=== PATIENT | female | born 1960 | race Caucasian/White ===

== ENCOUNTER 2017-01-11 07:40 | Inpatient (IN) | payer BC ==
[~2017-01-11] VITALS: Ht 177.8 cm; Wt 106.6 kg
--- NOTE | ~2017-01-11 | ST ---
[place], [place] EXERCISE STRESS TEST REPORT NAME: KIRILL BHATIA [facility] #: [id number] UNIT #: [id number] ROOM: 404 DOCTOR: SACHIN BLAND,GILDA BIRTHDATE: [birth year] DOS: 01/11/2017 EXERCISE NUCLEAR STRESS TEST REFERRING PHYSICIAN: Dr. Tai. REASON FOR TEST: Evaluation of chest pain. PHYSICAL EXAMINATION: NECK: Supple. LUNGS: Clear anteriorly. HEART: Regular rhythm. PROTOCOL: Chito protocol. Total stress time is 7 minutes. Maximum heart rate of 149, which is 89% of target heart rate. Peak blood pressure of 174/90, adequate response. Total mets 8.3 mets. Beverly treadmill score of +7. Symptoms: The patient had some resting chest pain, grade 1/10, and at the peak stress, pain was about grade 3/10, sharp pain, and pain was mostly resolved in the recovery phase; the patient did develop some shortness of breath during stress test, which was resolved acutely in the recovery phase. EKG: Resting EKG showed sinus rhythm. Stress EKG showed no ischemia, no arrhythmias. CONCLUSION: Clinically, the patient had mild chest pain and shortness of breath, mostly resolved in the recovery phase. POST-STRESS COMPLICATIONS: None. GILDA STEPHENSON MD CM:STRESS:EXERCISE STRESS TEST REPORT [id number] [id number] GILDA STEPHENSON MD
--- NOTE | ~2017-01-11 | CON ---
[place], [place] REPORT OF CONSULTATION NAME: KIRILL BHATIA UNIT #: [id number] ROOM: 404 DOCTOR: SACHIN BLAND,GILDA BIRTHDATE: [birth year] DOS: 01/11/2017 ADDENDUM CARDIOLOGY CONSULT REASON FOR CONSULTATION: Chest pain. REFERRING PHYSICIAN: Dr. Tai. This note is an addendum to the note dictated by Dr. Yessenia Andrew. I personally examined and assessed the patient today in the stress lab. Rhythm strips, labs and past medical history reviewed. Dr. Andrew's examination and assessment reflects my work. The patient was consulted for her intermittent chest pain. Her chest pains appeared to be atypical. Cardiac enzymes unremarkable. EKG unremarkable. She was scheduled for a stress test. PHYSICAL EXAMINATION: Focused cardiac exam showed, NECK: Supple. No distended neck veins. LUNGS: Clear to auscultation. HEART: Regular rhythm, no significant murmurs. EXTREMITIES: Showed no edema. IMPRESSION: 1. Chest pain, atypical, myocardial infarction ruled out. 2. History of asthma 3. Non-morbid obesity. RECOMMENDATIONS: Exercise nuclear stress test today due to evaluation of her chest pains. Further recommendations based on her symptoms and her stress test. This note is an addendum to the note dictated by Dr. Yessenia Andrew. GILDA STEPHENSON MD CM:CONSTR:REPORT OF CONSULTATION 1332 01/12/17 0629 interface
[~2017-01-11 07:40] MED LIST: AMBIEN5 MG PO; BUPROPION HCL150 M3 PO; CITALOPRAM20 MG/10 M PO; CLARITIN10 MG PO; DETROL LA4 MG PO; ESOMEPRAZOLE MA20 MG PO; FLEXERIL10 MG PO; FLOMAX0.4 MG PO; MEDROL DOSEPAK4 MG PO; MOTRIN600 MG PO; NEXIUM20 MG PO; PREMARIN V0.625 MG/G V; VICO75300 PO; WELLBUTRIN SR150 MG PO; Zofran4 MG PO; [UNRECOGNIZED DRUG - OTHER]; [UNRECOGNIZED DRUG - REMARK]
[2017-01-11 07:46] VITALS: BP 170/101
[2017-01-11] MEDS ORDERED: SINGULAIR10 M1 PO (07:56)
[2017-01-11] MEDS ORDERED: PROZAC20 MG PO (07:57)
[2017-01-11 08:09] LABS: BASO % 0.7 % (0.0-1.0); EOS # 0.1 10*3/uL (0.0-0.4); EOS % 1.8 % (1.0-4.0); HEMATOCRIT 40.4 % (37.0-47.0); HEMOGLOBIN 13.1 g/dl (12.0-16.0); LYMPH # 1.8 10*3/uL (1.3-4.4); LYMPH % 29.8 % (27.0-41.0); MEAN CORPUSCULAR HGB 28.5 pg (27.0-31.0); MEAN CORPUSCULAR HGB CONC 32.4 g/dl (33.0-37.0); MEAN PLATELET VOLUME 8.9 fl (9.6-12.3); MONO # 0.4 10*3/uL (0.1-1.0); MONO % 7.4 % (3.0-9.0); NEUT # 3.6 10*3/uL (2.3-7.9); NEUT % 60.1 % (47.0-73.0); PLATELET COUNT AUTOMATED 219 10*3/uL (130-400); RED BLOOD COUNT 4.59 10*6/uL (4.10-5.10); RED CELL DISTRI WIDTH 12.8 % (0-14.5)
[2017-01-11 08:18] LABS: INTERNATIONAL NORM RATIO 0.9 (2.0-3.5); PROTHROMBIN TIME 9.9 SECONDS (9.0-12.4)
[2017-01-11 08:26] LABS: ALBUMIN 4.1 gm/dl (3.1-4.5); ALKALINE PHOSPHATASE 76 U/L (45-117); BUN 19 mg/dl (7-24); CARBON DIOXIDE 28 mmol/L (21-32); CHLORIDE 104 mmol/L (98-107); CKMB 2.7 ng/ml (0.5-3.6); CPK 168 U/L (26-192); EST GLOM FILT AFRICAN AMERICAN > 60 ml/min; GLUCOSE 108 mg/dL (65-99); MAGNESIUM 2.2 mg/dL (1.5-2.1); POTASSIUM 3.7 mmol/L (3.5-5.1); SGOT/AST 21 IU/L (3-35); SGPT/ALT 28 U/L (12-78); SODIUM 142 mmol/L (136-145); TOTAL PROTEIN 7.7 gm/dL (6.4-8.2)
[2017-01-11 08:27] LABS: C-REACTIVE PROTEIN < 0.29 MG/DL (0-0.3); TROPONIN I < 0.015 ng/ml (<0.045)
[2017-01-11 08:50] VITALS: BP 142/97
[2017-01-11 09:19] VITALS: BP 163/100
[2017-01-11 10:00] VITALS: BP 150/81
[2017-01-11] MEDS ORDERED: AMBIEN10 M1 PO (10:05)
[2017-01-11 11:15] LABS: CKMB 2.3 ng/ml (0.5-3.6); CPK 156 U/L (26-192)
[2017-01-11 11:17] LABS: TROPONIN I < 0.015 ng/ml (<0.045)
[2017-01-11 16:00] VITALS: BP 143/71
[2017-01-11] MEDS ORDERED: LISINOPRIL5 MG PO (16:38)
== END 2017-01-11 16:56 | disposition home or self-care (01) | DRG 313 ==
LOC: ED 07:40 → 4E 09:07 → EDHOLD 09:07 → 4E 09:31
PROVIDERS: Emergency Medicine; Internal Medicine Hospice and Palliative Medicine
DX: R07.89 Other chest pain (principal); F33.9 Major depressive disorder, recurrent, unspecified; I16.1 Hypertensive emergency; K21.9 Gastro-esophageal reflux disease without esophagitis; J45.909 Unspecified asthma, uncomplicated; K58.9 Irritable bowel syndrome, unspecified; J30.2 Other seasonal allergic rhinitis; N32.81 Overactive bladder; R73.9 Hyperglycemia, unspecified; E83.41 Hypermagnesemia; E66.09 Other obesity due to excess calories; Z68.33 Body mass index [BMI] 33.0-33.9, adult; Z87.891 Personal history of nicotine dependence; Z90.710 Acquired absence of both cervix and uterus; Z88.0 Allergy status to penicillin

== ENCOUNTER → 2017-04-21 | Outpatient (CLI) | payer OTHER ==
[~2017-04-21] MED LIST changes: +AMBIEN10 M1 PO; +LISINOPRIL5 MG PO; +PROZAC20 MG PO; +SINGULAIR10 M1 PO
== END | disposition home or self-care (01) ==
LOC: CP 08:32
DX: J45.40 Moderate persistent asthma, uncomplicated (principal)

== ENCOUNTER 2017-09-26 07:28 | Emergency (ER) | payer OTHER ==
[~2017-09-26] VITALS: Ht 175.2 cm; Wt 108.9 kg
[2017-09-26 07:38] VITALS: BP 153/90
[2017-09-26] MEDS ORDERED: TAMIFLU 75MG CA75 MG PO ×2 (07:47→08:46)
[2017-09-26] MEDS ORDERED: PREDNISONE50 MG PO (08:45)
== END 2017-09-26 08:41 | disposition home or self-care (01) ==
LOC: ED 07:28
DX: J11.1 Influenza due to unidentified influenza virus with other respiratory manifestations (principal); J45.901 Unspecified asthma with (acute) exacerbation; K21.9 Gastro-esophageal reflux disease without esophagitis; I16.1 Hypertensive emergency; Z87.891 Personal history of nicotine dependence; Z88.0 Allergy status to penicillin; Z79.899 Other long term (current) drug therapy

== ENCOUNTER 2017-10-05 11:53 | Inpatient (IN) | payer OTHER ==
[~2017-10-05] VITALS: Ht 175.2 cm; Wt 107.7 kg
--- NOTE | ~2017-10-05 | PR ---
[place], [place] PROGRESS NOTE NAME: KIRILL BHATIA [facility] #: [id number] UNIT #: [id number] ROOM: 531 DOCTOR: STEPHANIE GOLDBERG MD,MOOSE BIRTHDATE: [birth year] DOS: 10/08/2017 SUBJECTIVE: She has been ambulatory. The patient reduction in symptoms of cough and shortness breath and the wheezing was continued. Denies symptoms of chest pain and abdominal pain, feeling better today. OBJECTIVE: VITAL SIGNS: Normal temperature, respiratory rate 20, heart rate 77, blood pressure 122/76, pulse ox and saturation on room air 95% saturation. HEENT: No acute change. NECK: Supple. CARDIOVASCULAR: S1, S2 audible. LUNGS: Noted without any wheezing or crackles today. ABDOMEN: Soft, nontender. EXTREMITIES: Without any acute edema. IMPRESSION: Progressive resolution of acute exacerbation of bronchial asthma and acute bronchitis. PLAN OF MANAGEMENT: The patient will be continued on current plan of therapy as previously. Usual care. All other supportive plan of management and care. Usual medical management, other therapies. MOOSE BROWN MD CM:PNTRANS 1510 17 MOOSE GOLDBERG MD 10/08/172016 interface
--- NOTE | ~2017-10-05 | EKG ---
[place], [place] ELECTROCARDIOGRAM REPORT NAME: KIRILL BHATIA UNIT #: [id number] ROOM: 531 DOCTOR: STEPHANIE GOLDBERG MD,MOOSE BIRTHDATE: [birth year] DOS: 10/05/2017 Electrocardiogram done at 12:46 p.m. Normal sinus rhythm noted with heart rate of 82 beats per minute. Poor R-wave progression of the patient noted. Possibility of old inferior myocardial infarction cannot be excluded. MOOSE BROWN MD CM:EKGRPT:ELECTROCARDIOGRAM REPORT 1227 1236 MOOSE GOLDBERG MD
--- NOTE | ~2017-10-05 | PR ---
[place], [place] PROGRESS NOTE NAME: KIRILL BHATIA [facility] #: [id number] UNIT #: [id number] ROOM: 531 DOCTOR: STEPHANIE GOLDBERG MD,MOOSE BIRTHDATE: [birth year] DOS: 10/07/2017 SUBJECTIVE: She has been showing reduction of the respiratory complaints at this time. Shortness of breath, cough have been resolving. There were no symptoms of chest pain. The cough has been subsiding. Shortness of breath and wheezing have also gradually decreased and the cough remains nonproductive. OBJECTIVE: VITAL SIGNS: Normal temperature, respiratory rate 19, heart rate 71, blood pressure 147/91-110/53. Pulse oxygen saturation on room air was 95% saturation. HEENT: Shows no acute change. NECK: Supple. CARDIOVASCULAR: S1, S2 audible. LUNGS: Noted with mild expiratory wheezing bilaterally. ABDOMEN: Soft, nontender. EXTREMITIES: Without any acute edema. LABORATORY DATA: CBC that was done today was noted as normal. The BMP this morning - glucose 121, BUN normal, creatinine was normal. Remaining electrolytes were normal. IMPRESSION: 1. Gradual resolution of acute tracheobronchitis. 2. Exacerbation of bronchial asthma was continued. 3. History of obesity and allergic rhinitis. PLAN OF MANAGEMENT: Gradual reduction of the steroids. The patient will be started from today to 60 mg b.i.d. dose decreased from 60 mg q.8 hours. Continue bronchodilators, oxygen supplementation, antibiotics, and mucolytics. Expected possible home discharge tomorrow morning depends on further improvement in the respiratory status. MOOSE BROWN MD CM:PNTRANS 1234 [id number] MOOSE GOLDBERG MD 10/07/17 2343 interface
--- NOTE | ~2017-10-05 | CON ---
[place], [place] REPORT OF CONSULTATION NAME: KIRILL BHATIA [facility] #: [id number] UNIT #: [id number] ROOM: 531 DOCTOR: MOOSE JUAREZ MD BIRTHDATE: [birth year] DOS: 10/06/2017 REQUESTED BY: Hospitalist service. REASON FOR CONSULTATION: Assessment of the current nonresolving respiratory symptom with acute exacerbation of bronchial asthma and severe cough. HISTORY OF PRESENT ILLNESS: This is a 57-year-old white female, who has been known from the past as the patient has been treated in the office for the medical management of chronic allergic rhinitis as well as an uncomplicated moderate persistent bronchial asthma. She came into my office yesterday for assessment of current symptom. The patient's symptoms started about a week or so ago. She started with having progressive chest congestion without any sputum expectoration and also developed severe shortness of breath and excessive severe cough. The patient with audible wheezing. She has taken [id number] medication and the medications continued to fail to respond to the treatment. After assessment of the patient in the office, she was noted acutely ill and sent to the hospital for further medical management and assessment. She has been currently admitted to the hospital. She has been started on intravenous steroids, bronchodilators, antibiotics and reported partial reduction of respiratory symptom, coughing frequency and intensity has been decreased. Cough was noted mostly nonproductive. Denies any symptoms of acute chest pain. Denies symptoms of hemoptysis or chest trauma. REVIEW OF SYSTEMS: CONSTITUTIONAL: The patient does complain of fatigue and tiredness with low grade fever. EYES: Denies burning, discharge or redness. EARS, NOSE, THROAT SYMPTOMS: Denies sore throat, hoarseness, otalgia, postnasal drainage or epistaxis. CARDIOVASCULAR: Denies angina pain, edema or pain in the lower extremities. GASTROINTESTINAL: No dysphagia, nausea, vomiting, diarrhea, abdominal pain, hematemesis, melena, hematochezia, abnormal weight loss. GENITOURINARY: No dysuria, suprapubic pain, hematuria. MUSCULOSKELETAL: No joint pain, redness, or tenderness reported. CENTRAL NERVOUS SYSTEM: No dizziness, headache, diplopia, syncopal episodes. The remaining systems were reviewed. They were noted all negative. PAST MEDICAL HISTORY: 1. History of uncomplicated moderate persistent bronchial asthma. 2. Moderate obesity with BMI 35. 3. History of allergic rhinitis. 4. Generalized anxiety disorder and depression. PAST SURGICAL HISTORY: Noted cervical laminectomy. SOCIAL HISTORY: The patient is , has 2 children, lives at home. She has been noted tobacco use from age of [age] years old, half a pack of cigarettes per day until 2005. [place], [place] REPORT OF CONSULTATION NAME: KIRILL BHATIA UNIT #: [id number] ROOM: 531 DOCTOR: MOOSE JUAREZ MD BIRTHDATE: [birth year] FAMILY HISTORY: Father is 77 years old without any known medical illness. Mother is 74 years old with history of congestive heart failure and stroke. CURRENT MEDICATIONS: Administered for this patient during this hospitalization were noted as use of Tessalon Perles, ibuprofen, loratadine, Prozac, Lovenox for DVT prophylaxis, oral Protonix, Singulair 10 mg, Wellbutrin-SR, Solu-Medrol 60 mg every 8 hours, DuoNeb q.6h., IV Levaquin, DuoNeb q.4h., and other p.r.n. medication for management of acute symptoms. ALLERGIES: NOTED ALLERGY TO PENICILLINS. PHYSICAL EXAMINATION: GENERAL: This is a 57-year-old white female, currently noted awake and alert, noted to be somewhat better, looking less ill for the patient today, awake, alert, oriented. Height of 5 feet 9 inches, weight of 237 pounds, BMI 35. VITAL SIGNS: Normal temperature, respiratory rate 16-20, heart rate 85, 108 on admission, blood pressure 122/64-137/79. The pulse oxygen saturation on room air 94% saturation. HEENT: Moderate obesity. Head was atraumatic. Eyes: No icterus. NECK: Supple. CARDIOVASCULAR: S1, S2 audible. LUNGS: The patient with moderate decreased breath sounds in the lungs were noted with expiratory wheezing, no crackles. ABDOMEN: Moderate obesity. Bowel sounds present without any tenderness. CENTRAL NERVOUS SYSTEM: Noted as cranial nerves 2-12 intact. No focal deficits. SKIN: No lesions or rashes. MUSCULOSKELETAL SYMPTOMS: Without any acute deformities. LABORATORY DATA: Chest x-ray of the patient two-view, which was done was noted essentially no acute abnormalities. CMP on 10/05/2017 on admission, normal BUN and creatinine and other electrolytes. CBC on 10/05/2017 noted completely normal. Influenza A and B, nasal washing antigens were negative. Lactic acid 2.6 later on 2.9. CMP of the patient this morning, glucose 124, normal BUN and creatinine. CBC today was essentially remains normal. IMPRESSION: 1. The patient has been currently admitted to the hospital, noted progressive acute respiratory symptoms with failed outpatient treatment, noted with acute exacerbation of bronchial asthma and acute bronchitis, possibility of bacterial, viral has been considered. Currently, the patient will be treated for bacterial etiology. 2. The patient with history of allergic rhinitis. 3. Anxiety and depression. 4. Chronic moderate obesity. PLAN OF TREATMENT: Continue current dose of Solu-Medrol, bronchodilators every 4 hours and antibiotics. Sputum for Gram stain and culture, the patient is able to expectorate sputum. Respiratory viral panel for the patient will be ordered [place], [place] REPORT OF CONSULTATION NAME: KIRILL BHATIA UNIT #: [id number] ROOM: 531 DOCTOR: MOOSE JUAREZ MD BIRTHDATE: [birth year] as well. Absent tobacco use as previously. All other supportive plan of therapy and care plan. Additional treatment changes will be recommended based on the progression of the illness. Once the patient's respiratory symptoms start resolving, the dose of Solu-Medrol will be decreased hopefully starting tomorrow. Other therapy, plan of management and care plan. Usual care. MOOSE BROWN MD CM:CONSTR:REPORT OF CONSULTATION 1327 10/06/17 1950 interface
[~2017-10-05 11:53] MED LIST changes: +PREDNISONE50 MG PO; +TAMIFLU 75MG CA75 MG PO
[2017-10-05 12:11] VITALS: BP 146/90
[2017-10-05 12:47] LABS: BASO % 0.4 % (0.0-1.0); EOS # 0.1 10*3/uL (0.0-0.4); EOS % 0.6 % (1.0-4.0); HEMATOCRIT 43.3 % (37.0-47.0); HEMOGLOBIN 14.1 g/dl (12.0-16.0); LYMPH # 1.4 10*3/uL (1.3-4.4); LYMPH % 17.3 % (27.0-41.0); MEAN CELL VOLUME 85.4 fl (81.0-99.0); MEAN CORPUSCULAR HGB 27.8 pg (27.0-31.0); MEAN CORPUSCULAR HGB CONC 32.6 g/dl (33.0-37.0); MEAN PLATELET VOLUME 8.8 fl (9.6-12.3); MONO # 0.4 10*3/uL (0.1-1.0); MONO % 4.7 % (3.0-9.0); NEUT # 6.2 10*3/uL (2.3-7.9); NEUT % 76.5 % (47.0-73.0); PLATELET COUNT AUTOMATED 278 10*3/uL (130-400); RED BLOOD COUNT 5.07 10*6/uL (4.10-5.10); RED CELL DISTRI WIDTH 13.4 % (0-14.5); WHITE BLOOD COUNT 8.1 10*3/uL (4.8-10.8)
[2017-10-05 12:52] LABS: BILIRUBIN NEGATIVE (NEGATIVE); BLOOD NEGATIVE (NEGATIVE); CLARITY CLEAR (CLEAR); COLOR YELLOW (YELLOW); GLUCOSE NEGATIVE (NEGATIVE); KETONE NEGATIVE (NEGATIVE); LEUKO ESTERASE NEGATIVE (NEGATIVE); NITRITE NEGATIVE (NEGATIVE); PH 6.5 (5.0-9.0); SPECIFIC GRAVITY <= 1.005 (1.005-1.030); UROBILINOGEN 0.2 E.U./dl (0.2-1.0)
[2017-10-05 13:06] LABS: ALBUMIN 3.9 gm/dl (3.1-4.5); ALKALINE PHOSPHATASE 71 U/L (45-117); BUN 17 mg/dl (7-24); CHLORIDE 104 mmol/L (98-107); CREATININE 0.98 mg/dL (0.55-1.02); POTASSIUM 3.8 mmol/L (3.5-5.1); SGOT/AST 18 IU/L (3-35); SGPT/ALT 31 U/L (12-78); SODIUM 140 mmol/L (136-145); TOTAL PROTEIN 7.6 gm/dL (6.4-8.2)
[2017-10-05 13:09] LABS: TROPONIN I < 0.015 ng/ml (<0.045)
[2017-10-05 13:10] LABS: BACTERIA TRACE; WBC 0-2 wbc/hpf (0-5)
[2017-10-05] MEDS ORDERED: PROZAC10 MG PO (15:17)
[2017-10-05 15:23] VITALS: BP 139/83
[2017-10-05 16:00] VITALS: BP 139/83
[2017-10-05] MEDS ORDERED: QVAR8.7 G1 INH (16:55)
[2017-10-05] MEDS ORDERED: IBU800 MG PO (16:56)
[2017-10-05] MEDS ORDERED: STOOL SOFTENER1 EAC3 PO (16:56)
[2017-10-05 20:03] VITALS: BP 134/80
[2017-10-06] VITALS: BP 137/79
[2017-10-06 06:49] LABS: HEMATOCRIT 38.6 % (37.0-47.0); HEMOGLOBIN 12.3 g/dl (12.0-16.0); LYMPH # 1.1 10*3/uL (1.3-4.4); LYMPH % 12.4 % (27.0-41.0); MEAN CELL VOLUME 87.1 fl (81.0-99.0); MEAN CORPUSCULAR HGB 27.8 pg (27.0-31.0); MEAN CORPUSCULAR HGB CONC 31.9 g/dl (33.0-37.0); MEAN PLATELET VOLUME 9.1 fl (9.6-12.3); MONO # 0.3 10*3/uL (0.1-1.0); MONO % 3.8 % (3.0-9.0); NEUT # 7.2 10*3/uL (2.3-7.9); NEUT % 83.1 % (47.0-73.0); PLATELET COUNT AUTOMATED 262 10*3/uL (130-400); RED BLOOD COUNT 4.43 10*6/uL (4.10-5.10); RED CELL DISTRI WIDTH 13.4 % (0-14.5); WHITE BLOOD COUNT 8.7 10*3/uL (4.8-10.8)
[2017-10-06 07:19] LABS: ALBUMIN 3.6 gm/dl (3.1-4.5); BUN 18 mg/dl (7-24); CHLORIDE 106 mmol/L (98-107); CHOLESTEROL 202 mg/dL (<200); CREATININE 0.94 mg/dL (0.55-1.02); HDL CHOLESTEROL 80 mg/dl (40-60); LDL CHOLESTEROL 108 mg/dL (9-159); PHOSPHOROUS 3.2 mg/dL (2.5-4.9); SGOT/AST 15 IU/L (3-35); SGPT/ALT 27 U/L (12-78); SODIUM 142 mmol/L (136-145); TOTAL PROTEIN 6.9 gm/dL (6.4-8.2); TRIGLYCERIDES 69 mg/dl (<150); VLDL CHOLESTEROL 14 mg/dL (6-40)
[2017-10-06 07:25] LABS: ALKALINE PHOSPHATASE 60 U/L (45-117); FREE T4 1.12 ng/dl (0.76-1.46)
[2017-10-06 07:52] LABS: VITAMIN D, 25-HYDROXY 39.9 ng/mL (30-100)
[2017-10-06 08:00] VITALS: BP 138/74
[2017-10-06 12:00] VITALS: BP 122/64
[2017-10-06 16:00] VITALS: BP 145/85
[2017-10-06 20:00] VITALS: BP 149/79
[2017-10-07] VITALS: BP 110/53
[2017-10-07 06:33] LABS: BASO % 0.1 % (0.0-1.0); EOS % 0.1 % (1.0-4.0); HEMATOCRIT 39.9 % (37.0-47.0); HEMOGLOBIN 12.8 g/dl (12.0-16.0); LYMPH # 1.2 10*3/uL (1.3-4.4); LYMPH % 12.6 % (27.0-41.0); MEAN CELL VOLUME 88.5 fl (81.0-99.0); MEAN CORPUSCULAR HGB 28.4 pg (27.0-31.0); MEAN CORPUSCULAR HGB CONC 32.1 g/dl (33.0-37.0); MEAN PLATELET VOLUME 9.1 fl (9.6-12.3); MONO # 0.4 10*3/uL (0.1-1.0); MONO % 4.7 % (3.0-9.0); NEUT # 7.5 10*3/uL (2.3-7.9); NEUT % 81.7 % (47.0-73.0); PLATELET COUNT AUTOMATED 259 10*3/uL (130-400); RED BLOOD COUNT 4.51 10*6/uL (4.10-5.10); RED CELL DISTRI WIDTH 13.7 % (0-14.5); WHITE BLOOD COUNT 9.2 10*3/uL (4.8-10.8)
[2017-10-07 06:45] LABS: BUN 18 mg/dl (7-24); CHLORIDE 105 mmol/L (98-107); CREATININE 0.89 mg/dL (0.55-1.02); POTASSIUM 4.2 mmol/L (3.5-5.1); SODIUM 140 mmol/L (136-145)
[2017-10-07 08:00] VITALS: BP 147/91
[2017-10-07 12:00] VITALS: BP 127/72
[2017-10-07 16:00] VITALS: BP 115/59
[2017-10-07 20:00] VITALS: BP 132/78
[2017-10-08] VITALS: BP 124/74
[2017-10-08 08:00] VITALS: BP 141/79
[2017-10-08 12:00] VITALS: BP 122/76
[2017-10-08] MEDS ORDERED: PREDNISONE10 MG PO (13:31)
[2017-10-08] MEDS ORDERED: LEVAQUIN500 M2 PO (13:31)
== END 2017-10-08 14:56 | disposition home or self-care (01) | DRG 202 ==
LOC: ED 11:53 → 5E 14:34 → EDHOLD 14:34 → 5E 15:06
PROVIDERS: Internal Medicine; Physician Assistant; Registered Nurse
DX: J45.51 Severe persistent asthma with (acute) exacerbation (principal); E87.2 Acidosis; F32.9 Major depressive disorder, single episode, unspecified; K21.9 Gastro-esophageal reflux disease without esophagitis; F41.9 Anxiety disorder, unspecified; I10 Essential (primary) hypertension; N32.81 Overactive bladder; E66.8 Other obesity; J20.9 Acute bronchitis, unspecified; G47.00 Insomnia, unspecified; R00.0 Tachycardia, unspecified; R73.9 Hyperglycemia, unspecified; R73.03 Prediabetes; Z88.0 Allergy status to penicillin; Z82.0 Family history of epilepsy and other diseases of the nervous system; Z87.891 Personal history of nicotine dependence; Z82.49 Family history of ischemic heart disease and other diseases of the circulatory system; Z90.710 Acquired absence of both cervix and uterus; Z68.35 Body mass index [BMI] 35.0-35.9, adult

== ENCOUNTER 2018-01-28 15:04 | Emergency (ER) | payer OTHER ==
[~2018-01-28] VITALS: Wt 95.3 kg
[~2018-01-28 15:04] MED LIST changes: +IBU800 MG PO; +LEVAQUIN500 M2 PO; +PREDNISONE10 MG PO; +PROZAC10 MG PO; +QVAR8.7 G1 INH; +STOOL SOFTENER1 EAC3 PO
[2018-01-28 15:09] VITALS: BP 144/84
[2018-01-28] MEDS ORDERED: NORCO 5-325 TA1 EACH PO (16:22)
== END 2018-01-28 17:24 | disposition home or self-care (01) ==
LOC: ED 15:04
DX: S83.91XA Sprain of unspecified site of right knee, initial encounter (principal); Z90.710 Acquired absence of both cervix and uterus; W01.0XXA Fall on same level from slipping, tripping and stumbling without subsequent striking against object, initial encounter; Y93.89 Activity, other specified; Y92.89 Other specified places as the place of occurrence of the external cause; Y99.8 Other external cause status

== ENCOUNTER → 2018-02-06 | Outpatient (CLI) | payer OTHER ==
[~2018-02-06] MED LIST changes: +NORCO 5-325 TA1 EACH PO
== END | disposition home or self-care (01) ==
LOC: MRI 07:55
DX: M25.561 Pain in right knee (principal)

== ENCOUNTER → 2018-04-27 | Outpatient (CLI) | payer OTHER ==
[~2018-04-27] MED LIST changes: +NEXIUM20 M1 PO; +QVAR REDIHALE10.6 G1 INH
== END | disposition home or self-care (01) ==
LOC: MAMMO 07:40
DX: Z12.31 Encounter for screening mammogram for malignant neoplasm of breast (principal)

== ENCOUNTER → 2018-07-17 | Outpatient (CLI) | payer OTHER | END | disposition home or self-care (01) | LOC: ORTHO 00:59 | DX: M25.551 Pain in right hip (principal); W19.XXXA Unspecified fall, initial encounter ==

== ENCOUNTER 2018-07-25 09:56 | Emergency (ER) | payer OTHER ==
[~2018-07-25] VITALS: Ht 7315 cm; Wt 2.5 kg
--- NOTE | ~2018-07-25 | EKG ---
[place], [place] ELECTROCARDIOGRAM REPORT NAME: KIRILL BHATIA UNIT #: [id number] ROOM: DOCTOR: AUDREY DRAFT REPORT BIRTHDATE: [birth year] [facility] Test Date: 2018-07-25 Test Time: 10:53:32 Pat Name: KIRILL BHATIA Department: Room: Gender: F [employer] Dressmaker: BENTLEY : 1960 Requested By: PERRY DAWSON Order Number: [id number] [place] MD: Emily Orr MD Measurements Intervals [place] Rate: 72 P: 70 MN: 167 QRS: -32 QRSD: 93 T: 61 QT: 411 QTc: 450 Interpretive Statements Sinus rhythm Left axis deviation Low voltage, precordial leads Consider anterior infarct No previous ECG available for comparison Electronically Signed On 07-26-2018 8:48:08 PST by Emily Orr MD CM:EKGRPT:ELECTROCARDIOGRAM REPORT 1053 0848 PERRY TORO DRAFT REPORT PERRY DAWSON DO
[~2018-07-25 09:56] MED LIST changes: -NEXIUM20 M1 PO; -QVAR REDIHALE10.6 G1 INH
[2018-07-25 10:00] VITALS: BP 160/87
[2018-07-25] MEDS ORDERED: QVAR REDIHALE10.6 G1 INH (10:20)
[2018-07-25] MEDS ORDERED: WELLBUTRIN SR150 MG PO (10:20)
[2018-07-25] MEDS ORDERED: PROZAC10 MG PO (10:20)
[2018-07-25] MEDS ORDERED: NEXIUM20 M1 PO (10:21)
== END 2018-07-25 15:05 | disposition home or self-care (01) ==
LOC: ED 09:56
DX: R07.9 Chest pain, unspecified (principal); M25.512 Pain in left shoulder; J45.909 Unspecified asthma, uncomplicated; K21.9 Gastro-esophageal reflux disease without esophagitis; I10 Essential (primary) hypertension; Z88.0 Allergy status to penicillin; Z79.1 Long term (current) use of non-steroidal anti-inflammatories (NSAID); Z79.899 Other long term (current) drug therapy; Z87.442 Personal history of urinary calculi; Z90.710 Acquired absence of both cervix and uterus

== ENCOUNTER → 2018-08-02 | Outpatient (CLI) | payer OTHER ==
[~2018-08-02] MED LIST changes: +NEXIUM20 M1 PO; +QVAR REDIHALE10.6 G1 INH
== END | disposition home or self-care (01) ==
LOC: MRI 08:35
DX: M17.11 Unilateral primary osteoarthritis, right knee (principal); D16.21 Benign neoplasm of long bones of right lower limb

== ENCOUNTER → 2019-04-05 | Outpatient (CLI) | payer OTHER ==
--- NOTE | ~2019-04-05 | PF ---
[place], [place] PULMONARY FUNCTION TEST NAME: KIRILL BHATIA [facility] #: [id number] UNIT #: [id number] ROOM: DOCTOR: STEPHANIE GOLDBERG MD,MOOSE BIRTHDATE: [birth year] DOS: 04/05/2019 ORDERED: From my office. HISTORY: A 58-year-old female, height of 69 inches, weight of 235 pounds, BMI 34.7 with a diagnosis of bronchial asthma. The patient was noted tobacco use in the past as one-third of pack of cigarettes per day for 10 years. Tobacco cessation reported 28 years ago. SPIROMETRY: FVC recorded at 3.72 liters, 96% predicted value, FEV1 2.85 liters, 93% predicted value. Ratio of FEV1/FVC 76%. Post-bronchodilator, no improvement noted of any clinical significance. Flow volume was suggestive of mild obstructive airway pattern. LUNG VOLUME: Thoracic gas volume recorded 87%, residual volume 101%, total lung capacity 102%. The patient's lung diffusion recorded 95%. The patient's airway resistance and passive conductance noted normal partial improvement post-bronchodilator test. FINAL IMPRESSION: Current test for the patient was noted with mild obstructive lung disease. MOOSE BROWN MD CM:PFREPORT:PULMONARY FUNCTION TEST 1016 1925 MOOSE GOLDBERG MD
== END | disposition home or self-care (01) ==
LOC: CP 08:30
DX: J45.40 Moderate persistent asthma, uncomplicated (principal); Z72.0 Tobacco use

== ENCOUNTER → 2019-04-30 | Outpatient (CLI) | payer OTHER ==
[2019-04-30 19:36] LABS: BASO % 0.7 % (0.0-1.0); EOS # 0.1 10*3/uL (0.0-0.4); EOS % 2.4 % (1.0-4.0); HEMATOCRIT 42.4 % (37.0-47.0); HEMOGLOBIN 13.4 g/dl (12.0-16.0); LYMPH # 1.4 10*3/uL (1.3-4.4); LYMPH % 25.6 % (27.0-41.0); MEAN CORPUSCULAR HGB 28.8 pg (27.0-31.0); MEAN CORPUSCULAR HGB CONC 31.6 g/dl (33.0-37.0); MEAN PLATELET VOLUME 8.7 fl (9.6-12.3); MONO # 0.3 10*3/uL (0.1-1.0); NEUT # 3.6 10*3/uL (2.3-7.9); NEUT % 65.1 % (47.0-73.0); PLATELET COUNT AUTOMATED 254 10*3/uL (130-400); RED BLOOD COUNT 4.66 10*6/uL (4.10-5.10); RED CELL DISTRI WIDTH 12.8 % (0-14.5); WHITE BLOOD COUNT 5.5 10*3/uL (4.8-10.8)
[2019-04-30 19:52] LABS: ALBUMIN 3.6 gm/dl (3.1-4.5); ALKALINE PHOSPHATASE 72 U/L (45-117); BUN 21 mg/dl (7-24); CHLORIDE 108 mmol/L (98-107); CHOLESTEROL 182 mg/dL (<200); CREATININE 0.85 mg/dL (0.55-1.02); HDL CHOLESTEROL 63 mg/dl (40-60); LDL CHOLESTEROL 108 mg/dL (9-159); POTASSIUM 4.1 mmol/L (3.5-5.1); SGOT/AST 16 IU/L (3-35); SGPT/ALT 24 U/L (12-78); SODIUM 141 mmol/L (136-145); TOTAL PROTEIN 7.2 gm/dL (6.4-8.2); TRIGLYCERIDES 55 mg/dl (<150); VLDL CHOLESTEROL 11 mg/dL (6-40)
== END | disposition home or self-care (01) ==
LOC: LAB 18:54
PROVIDERS: Nurse Practitioner Family
DX: Z00.00 Encounter for general adult medical examination without abnormal findings (principal)

== ENCOUNTER → 2019-05-24 | Outpatient (CLI) | payer OTHER | END | disposition home or self-care (01) | LOC: RAD 10:34 | DX: M47.814 Spondylosis without myelopathy or radiculopathy, thoracic region (principal); M47.816 Spondylosis without myelopathy or radiculopathy, lumbar region; M47.817 Spondylosis without myelopathy or radiculopathy, lumbosacral region ==

== ENCOUNTER → 2019-07-27 | Outpatient (CLI) | payer OTHER | END | disposition home or self-care (01) | LOC: MRI 09:00 | DX: M50.30 Other cervical disc degeneration, unspecified cervical region (principal); M47.26 Other spondylosis with radiculopathy, lumbar region ==

== ENCOUNTER → 2019-09-05 | Outpatient (CLI) | payer OTHER | END | disposition home or self-care (01) | LOC: MAMMO 13:00 | DX: Z12.31 Encounter for screening mammogram for malignant neoplasm of breast (principal) ==

== ENCOUNTER → 2019-09-24 | Outpatient (CLI) | payer OTHER | LOC: MRI 02:38 | DX: G43.519 Persistent migraine aura without cerebral infarction, intractable, without status migrainosus (principal) ==

== ENCOUNTER → 2019-09-28 | Outpatient (CLI) | payer OTHER | END | disposition home or self-care (01) | LOC: MRI 09-26 15:00 | DX: G43.519 Persistent migraine aura without cerebral infarction, intractable, without status migrainosus (principal) ==

== ENCOUNTER 2020-04-26 22:32 | Emergency (ER) | payer OTHER ==
[2020-04-26 22:41] VITALS: BP 141/86
== END 2020-04-27 00:54 | disposition home or self-care (01) ==
LOC: ED 22:32
DX: M62.830 Muscle spasm of back (principal); K21.9 Gastro-esophageal reflux disease without esophagitis; J45.909 Unspecified asthma, uncomplicated; Z88.0 Allergy status to penicillin; Z79.899 Other long term (current) drug therapy

== ENCOUNTER → 2020-05-08 | Outpatient (CLI) | payer OTHER | END | disposition home or self-care (01) | LOC: MRI 00:20 | PROVIDERS: ATTEND Orthopaedic Surgery | DX: M19.041 Primary osteoarthritis, right hand (principal); M75.21 Bicipital tendinitis, right shoulder; M25.421 Effusion, right elbow; M70.11 Bursitis, right hand; M67.431 Ganglion, right wrist ==

== ENCOUNTER → 2020-05-26 | Outpatient (CLI) | payer OTHER | END | disposition home or self-care (01) | LOC: MRI 08:01 | PROVIDERS: ATTEND Family Medicine | DX: S46.019A Strain of muscle(s) and tendon(s) of the rotator cuff of unspecified shoulder, initial encounter (principal); X58.XXXA Exposure to other specified factors, initial encounter; Y93.89 Activity, other specified; Y92.89 Other specified places as the place of occurrence of the external cause; Y99.8 Other external cause status ==

== ENCOUNTER → 2020-06-11 | Outpatient (CLI) | payer OTHER | END | disposition home or self-care (01) | LOC: MAMMO 00:20 | PROVIDERS: ATTEND Nurse Practitioner Family | DX: N63.20 Unspecified lump in the left breast, unspecified quadrant (principal); R92.8 Other abnormal and inconclusive findings on diagnostic imaging of breast ==

== ENCOUNTER → 2020-07-28 | Outpatient (CLI) | payer OTHER | END | disposition home or self-care (01) | LOC: COVID19 11:06 | PROVIDERS: ATTEND Student in an Organized Health Care Education/Training Program | DX: U07.1 COVID-19 (principal) ==

== ENCOUNTER 2020-08-08 17:34 | Observation (INO) | payer OTHER ==
[~2020-08-08] VITALS: Ht 175.2 cm; Wt 113.4 kg
[2020-08-08 17:43] VITALS: BP 112/57
[2020-08-08 20:09] LABS: BASO % 0.3 % (0.0-1.0); EOS # 0.1 10*3/uL (0.0-0.4); EOS % 1.6 % (1.0-4.0); HEMATOCRIT 38.3 % (37.0-47.0); LYMPH # 2.2 10*3/uL (1.3-4.4); LYMPH % 35.8 % (27.0-41.0); MEAN CELL VOLUME 89.3 fl (81.0-99.0); MEAN CORPUSCULAR HGB CONC 31.3 g/dl (33.0-37.0); MEAN PLATELET VOLUME 8.9 fl (9.6-12.3); MONO # 0.4 10*3/uL (0.1-1.0); NEUT # 3.4 10*3/uL (2.3-7.9); NEUT % 54.6 % (47.0-73.0); PLATELET COUNT AUTOMATED 244 10*3/uL (130-400); RED BLOOD COUNT 4.29 10*6/uL (4.10-5.10); RED CELL DISTRI WIDTH 13.6 % (0-14.5); WHITE BLOOD COUNT 6.2 10*3/uL (4.8-10.8)
[2020-08-08 20:24] LABS: ALBUMIN 3.1 gm/dl (3.1-4.5); ALKALINE PHOSPHATASE 69 U/L (45-117); BUN 25 mg/dl (7-24); CHLORIDE 107 mmol/L (98-107); CREATININE 0.86 mg/dL (0.55-1.02); POTASSIUM 3.5 mmol/L (3.5-5.1); SGOT/AST 19 IU/L (3-35); SODIUM 141 mmol/L (136-145); TOTAL PROTEIN 6.7 gm/dL (6.4-8.2)
[2020-08-08 20:29] LABS: SGPT/ALT 27 U/L (12-78)
[2020-08-08 22:58] LABS: CPK 57 U/L (26-192); LDH 252 U/L (84-246)
[2020-08-08 23:21] VITALS: BP 104/74
[2020-08-09 00:28] LABS: BILIRUBIN Negative (Negative); BLOOD Negative (Negative); CLARITY Clear (Clear); COLOR Yellow (Yellow); GLUCOSE Negative (Negative); KETONE Negative (Negative); LEUKO ESTERASE Trace (Negative); NITRITE Negative (Negative); SPECIFIC GRAVITY 1.025 (1.001-1.030)
[2020-08-09 00:43] LABS: BACTERIA TRACE; RBC 0-2 rbc/hpf (0-2)
[2020-08-09 02:35] VITALS: BP 114/74
[2020-08-09 05:25] LABS: ALBUMIN 3.2 gm/dl (3.1-4.5); ALKALINE PHOSPHATASE 71 U/L (45-117); BUN 18 mg/dl (7-24); CHLORIDE 109 mmol/L (98-107); CPK 61 U/L (26-192); CREATININE 0.87 mg/dL (0.55-1.02); LDH 252 U/L (84-246); POTASSIUM 4.3 mmol/L (3.5-5.1); SGOT/AST 17 IU/L (3-35); SGPT/ALT 23 U/L (12-78); SODIUM 141 mmol/L (136-145)
[2020-08-09 06:32] VITALS: BP 143/72
[2020-08-09 06:36] LABS: BASO % 0.2 % (0.0-1.0); EOS % 0.5 % (1.0-4.0); HEMATOCRIT 38.8 % (37.0-47.0); LYMPH # 1.1 10*3/uL (1.3-4.4); MEAN CELL VOLUME 90.2 fl (81.0-99.0); MEAN CORPUSCULAR HGB 28.6 pg (27.0-31.0); MEAN CORPUSCULAR HGB CONC 31.7 g/dl (33.0-37.0); MEAN PLATELET VOLUME 9.2 fl (9.6-12.3); MONO # 0.2 10*3/uL (0.1-1.0); MONO % 2.5 % (3.0-9.0); NEUT # 4.6 10*3/uL (2.3-7.9); NEUT % 78.1 % (47.0-73.0); PLATELET COUNT AUTOMATED 251 10*3/uL (130-400); RED CELL DISTRI WIDTH 13.7 % (0-14.5); WHITE BLOOD COUNT 5.9 10*3/uL (4.8-10.8)
[2020-08-09 07:02] LABS: FERRITIN 192.5 ng/mL (10.0-291.0)
[2020-08-09 10:12] LABS: ABG BASE EXCESS 2.9 mmol/L (-2.0-2.0); ARTERIAL BLOOD GAS PH 7.509 (7.35-7.45)
[2020-08-09 13:26] VITALS: BP 104/60
--- NOTE | 2020-08-13 08:02 | NUR ---
BLOOD CULTURE RESULTS CALLED POSITIVE FOR [facility]. DR PEREZ NOTIFIED STATED TO CALL PATIENT TO LET HER KNOW AND IF SHE FEELS WORSE THAT SHE CAN RETURN TO THE ER. CALLED PATIENT AND SHE DID NOT ANSWER. LEFT MESSAGE FOR PATIENT TO CALL BACK.
== END 2020-08-09 18:12 | disposition home or self-care (01) ==
LOC: ED 17:34 → EDHOLD 22:10 → ED 22:10 → EDHOLD 08-09 18:12
PROVIDERS: Emergency Medicine; Internal Medicine; ADMIT Student in an Organized Health Care Education/Training Program; ATTEND Student in an Organized Health Care Education/Training Program
DX: U07.1 COVID-19 (principal); J18.9 Pneumonia, unspecified organism; R79.82 Elevated C-reactive protein (CRP); J45.909 Unspecified asthma, uncomplicated; K21.9 Gastro-esophageal reflux disease without esophagitis; F41.9 Anxiety disorder, unspecified; I10 Essential (primary) hypertension; R73.03 Prediabetes; K58.9 Irritable bowel syndrome, unspecified; F32.9 Major depressive disorder, single episode, unspecified; E66.01 Morbid (severe) obesity due to excess calories

== ENCOUNTER → 2020-08-14 | Outpatient (CLI) | payer OTHER ==
[2020-08-14 16:17] LABS: BASO % 0.5 % (0.0-1.0); EOS # 0.1 10*3/uL (0.0-0.4); EOS % 1.7 % (1.0-4.0); HEMATOCRIT 42.5 % (37.0-47.0); LYMPH # 2.9 10*3/uL (1.3-4.4); LYMPH % 36.4 % (27.0-41.0); MEAN CELL VOLUME 89.3 fl (81.0-99.0); MEAN CORPUSCULAR HGB 27.7 pg (27.0-31.0); MEAN CORPUSCULAR HGB CONC 31.1 g/dl (33.0-37.0); MEAN PLATELET VOLUME 8.5 fl (9.6-12.3); MONO # 0.4 10*3/uL (0.1-1.0); MONO % 4.6 % (3.0-9.0); NEUT # 4.6 10*3/uL (2.3-7.9); NEUT % 56.3 % (47.0-73.0); PLATELET COUNT AUTOMATED 322 10*3/uL (130-400); RED BLOOD COUNT 4.76 10*6/uL (4.10-5.10); RED CELL DISTRI WIDTH 13.5 % (0-14.5); WHITE BLOOD COUNT 8.1 10*3/uL (4.8-10.8)
[2020-08-14 16:32] LABS: ALBUMIN 3.6 gm/dl (3.1-4.5); ALKALINE PHOSPHATASE 72 U/L (45-117); BUN 18 mg/dl (7-24); CHLORIDE 106 mmol/L (98-107); CREATININE 1.06 mg/dL (0.55-1.02); POTASSIUM 3.5 mmol/L (3.5-5.1); SGOT/AST 19 IU/L (3-35); SGPT/ALT 32 U/L (12-78); SODIUM 139 mmol/L (136-145); TOTAL PROTEIN 7.5 gm/dL (6.4-8.2)
== END | disposition home or self-care (01) ==
LOC: LAB 15:47
PROVIDERS: Student in an Organized Health Care Education/Training Program; ATTEND Family Medicine
DX: J12.89 Other viral pneumonia (principal); U07.1 COVID-19; R78.81 Bacteremia

== ENCOUNTER → 2020-09-15 | Outpatient (CLI) | payer OTHER ==
[~2020-09-15] MED LIST changes: +BUSPAR15 MG PO; +CYMBALTA60 MG PO; +FIBER500 MG PO; +LYRICA100 M1 PO; +ONE-DAILY MULT1 EAC1 PO; +PROVENTIL HFA6.7 GM INH; +Synthroid,Levo50 MCG PO; +ZANAFLEX4 M2 PO
== END | disposition home or self-care (01) ==
LOC: COVID19 11:32
PROVIDERS: ATTEND Orthopaedic Surgery
DX: Z01.812 Encounter for preprocedural laboratory examination (principal); Z20.822 Contact with and (suspected) exposure to COVID-19

== ENCOUNTER → 2020-09-18 | Day surgery (SDC) | payer OTHER ==
[2020-09-16 15:25] LABS: BASO % 0.7 % (0.0-1.0); EOS # 0.1 10*3/uL (0.0-0.4); EOS % 1.1 % (1.0-4.0); HEMATOCRIT 41.2 % (37.0-47.0); LYMPH # 2.1 10*3/uL (1.3-4.4); LYMPH % 37.6 % (27.0-41.0); MEAN CELL VOLUME 89.8 fl (81.0-99.0); MEAN CORPUSCULAR HGB 27.9 pg (27.0-31.0); MEAN CORPUSCULAR HGB CONC 31.1 g/dl (33.0-37.0); MEAN PLATELET VOLUME 9.4 fl (9.6-12.3); MONO # 0.5 10*3/uL (0.1-1.0); MONO % 7.9 % (3.0-9.0); NEUT % 52.5 % (47.0-73.0); PLATELET COUNT AUTOMATED 266 10*3/uL (130-400); RED BLOOD COUNT 4.59 10*6/uL (4.10-5.10); RED CELL DISTRI WIDTH 13.3 % (0-14.5); WHITE BLOOD COUNT 5.7 10*3/uL (4.8-10.8)
[2020-09-16 15:37] LABS: BUN 20 mg/dl (7-24); CHLORIDE 105 mmol/L (98-107); CREATININE 0.83 mg/dL (0.55-1.02); POTASSIUM 3.8 mmol/L (3.5-5.1); SODIUM 140 mmol/L (136-145)
[~2020-09-18] VITALS: Ht 175.2 cm; Wt 113.4 kg
[2020-09-18 09:00] VITALS: BP 113/65
[2020-09-18 10:52] VITALS: BP 117/79
[2020-09-18 11:07] VITALS: BP 122/73
[2020-09-18 11:22] VITALS: BP 122/72
== END ==
LOC: SDC 09-16 13:15
PROVIDERS: ATTEND Orthopaedic Surgery
DX: G56.01 Carpal tunnel syndrome, right upper limb (principal); M67.431 Ganglion, right wrist; G56.21 Lesion of ulnar nerve, right upper limb; F32.9 Major depressive disorder, single episode, unspecified; M79.7 Fibromyalgia; Z90.710 Acquired absence of both cervix and uterus; J45.909 Unspecified asthma, uncomplicated; K21.9 Gastro-esophageal reflux disease without esophagitis; Z98.890 Other specified postprocedural states

== ENCOUNTER → 2021-10-19 | Outpatient (CLI) | payer OTHER | END | disposition home or self-care (01) | LOC: MAMMO 10:30 | PROVIDERS: ATTEND Nurse Practitioner Family | DX: Z12.31 Encounter for screening mammogram for malignant neoplasm of breast (principal) ==

== ENCOUNTER → 2022-07-15 | Day surgery (SDC) | payer OTHER ==
[~2022-07-15] VITALS: Ht 175.2 cm; Wt 109.8 kg
[~2022-07-15] MED LIST changes: +CARAFATE1 G1 PO; +PEPCID20 MG PO; +TUMS200 MG PO
[2022-07-15 07:25] VITALS: BP 127/71
[2022-07-15 08:10] VITALS: BP 115/57
[2022-07-15 08:25] VITALS: BP 120/75
[2022-07-15 08:40] VITALS: BP 122/77
== END | disposition home or self-care (01) ==
LOC: SDC 07-12 09:30
PROVIDERS: ATTEND Surgery
DX: Z12.11 Encounter for screening for malignant neoplasm of colon (principal); D12.4 Benign neoplasm of descending colon; D12.5 Benign neoplasm of sigmoid colon; K29.50 Unspecified chronic gastritis without bleeding; K57.30 Diverticulosis of large intestine without perforation or abscess without bleeding; K22.70 Barrett's esophagus without dysplasia; J45.909 Unspecified asthma, uncomplicated; K21.9 Gastro-esophageal reflux disease without esophagitis; K58.9 Irritable bowel syndrome, unspecified; M79.7 Fibromyalgia; F32.A Depression, unspecified; Z87.891 Personal history of nicotine dependence; Z88.0 Allergy status to penicillin; Z79.899 Other long term (current) drug therapy

== ENCOUNTER → 2022-07-30 | Outpatient (CLI) | payer OTHER | END | disposition home or self-care (01) | LOC: US 01:33 | PROVIDERS: ATTEND Surgery | DX: D12.5 Benign neoplasm of sigmoid colon (principal); K76.0 Fatty (change of) liver, not elsewhere classified; R16.0 Hepatomegaly, not elsewhere classified; K21.9 Gastro-esophageal reflux disease without esophagitis ==

== ENCOUNTER → 2022-08-09 | Outpatient (CLI) | payer OTHER | END | disposition home or self-care (01) | LOC: NM 01:49 | PROVIDERS: ATTEND Surgery | DX: K83.9 Disease of biliary tract, unspecified (principal) ==

== ENCOUNTER → 2022-09-02 | Day surgery (SDC) | payer OTHER ==
[2022-08-30 14:24] VITALS: BP 133/78
[2022-09-02] VITALS (15 sets, daily range): BP systolic 114–165; BP diastolic 56–93
[~2022-09-02] VITALS: Ht 175.2 cm; Wt 108.9 kg
[~2022-09-02] MED LIST changes: +COLACE100 MG PO; +HYDROCODONE-AC1 EAC1 PO; +NEXIUM40 MG PO; +ONDANSETRON HYDR4 M1 PO
== END | disposition home or self-care (01) ==
LOC: SDC 08-30 14:00
PROVIDERS: ATTEND Surgery
DX: K80.10 Calculus of gallbladder with chronic cholecystitis without obstruction (principal); K82.8 Other specified diseases of gallbladder; K21.9 Gastro-esophageal reflux disease without esophagitis; J45.909 Unspecified asthma, uncomplicated; K58.9 Irritable bowel syndrome, unspecified; M79.7 Fibromyalgia; F41.9 Anxiety disorder, unspecified; F32.A Depression, unspecified; Z79.899 Other long term (current) drug therapy

== ENCOUNTER → 2022-10-05 | Outpatient (CLI) | payer OTHER ==
[2022-10-05 16:06] LABS: BASO % 0.3 % (0.0-1.0); EOS # 0.1 10*3/uL (0.0-0.4); EOS % 0.7 % (1.0-4.0); HEMATOCRIT 44.2 % (37.0-47.0); LYMPH % 17.5 % (27.0-41.0); MEAN CELL VOLUME 89.5 fl (81.0-99.0); MEAN CORPUSCULAR HGB 28.7 pg (27.0-31.0); MEAN CORPUSCULAR HGB CONC 32.1 g/dl (33.0-37.0); MEAN PLATELET VOLUME 8.8 fl (9.6-12.3); MONO # 0.5 10*3/uL (0.1-1.0); NEUT # 8.8 10*3/uL (2.3-7.9); NEUT % 77.1 % (47.0-73.0); PLATELET COUNT AUTOMATED 294 10*3/uL (130-400); RED BLOOD COUNT 4.94 10*6/uL (4.10-5.10); WHITE BLOOD COUNT 11.4 10*3/uL (4.8-10.8)
[2022-10-05 16:30] LABS: ALKALINE PHOSPHATASE 83 U/L (46-116); BUN 16 mg/dl (9-23); CHLORIDE 99 mmol/L (98-107); SGPT/ALT 24 U/L (10-49); TOTAL PROTEIN 7.3 gm/dL (6.0-8.0)
[2022-10-05 16:46] LABS: VITAMIN D, 25-HYDROXY 52.8 ng/mL (30-100)
== END | disposition home or self-care (01) ==
LOC: RESCLI 02:22
PROVIDERS: Internal Medicine; ATTEND Internal Medicine
DX: F41.1 Generalized anxiety disorder (principal); E03.8 Other specified hypothyroidism; J45.40 Moderate persistent asthma, uncomplicated; I10 Essential (primary) hypertension; K21.9 Gastro-esophageal reflux disease without esophagitis; J30.2 Other seasonal allergic rhinitis; G47.00 Insomnia, unspecified; M62.838 Other muscle spasm; J45.41 Moderate persistent asthma with (acute) exacerbation; G62.9 Polyneuropathy, unspecified; E53.8 Deficiency of other specified B group vitamins; E55.9 Vitamin D deficiency, unspecified; R73.9 Hyperglycemia, unspecified; Z88.0 Allergy status to penicillin; Z90.710 Acquired absence of both cervix and uterus; Z98.890 Other specified postprocedural states; Z82.49 Family history of ischemic heart disease and other diseases of the circulatory system; Z72.89 Other problems related to lifestyle; Z79.899 Other long term (current) drug therapy

== ENCOUNTER → 2023-10-05 | Outpatient (CLI) | payer BC | END | disposition home or self-care (01) | LOC: RESCLI 10:25 | PROVIDERS: ATTEND Student in an Organized Health Care Education/Training Program | DX: J44.9 Chronic obstructive pulmonary disease, unspecified (principal); E03.9 Hypothyroidism, unspecified; G89.29 Other chronic pain; J45.909 Unspecified asthma, uncomplicated; F32.9 Major depressive disorder, single episode, unspecified; G47.00 Insomnia, unspecified; E03.8 Other specified hypothyroidism; F41.1 Generalized anxiety disorder; K21.9 Gastro-esophageal reflux disease without esophagitis; M62.838 Other muscle spasm; G62.9 Polyneuropathy, unspecified; Z82.3 Family history of stroke; Z82.49 Family history of ischemic heart disease and other diseases of the circulatory system; Z88.0 Allergy status to penicillin; Z79.899 Other long term (current) drug therapy; Z88.8 Allergy status to other drugs, medicaments and biological substances ==